=== PATIENT | female | born 1940 | race Caucasian/White ===

== ENCOUNTER 2020-06-25 03:43 | Inpatient (IN) | payer MEDICARE, OTHER ==
[~2020-06-25] VITALS: Ht 147.3 cm; Wt 52.2 kg
[2020-06-25 04:12] LABS: RED BLOOD COUNT 4.16 M/UL (4.00-5.10); WHITE BLOOD COUNT 8.8 K/UL (4.5-11.0)
[2020-06-25 05:43] LABS: BUN/CREATININE RATIO 31 (0-10)
[2020-06-25] MEDS ORDERED: LEVEMIR FL100 UNIT/1 SQ (10:43)
[2020-06-25] MEDS ORDERED: LEVOTHYROXINE75 MCG PO (10:43)
[2020-06-25] MEDS ORDERED: GABAPENTIN300 MG PO (10:44)
[2020-06-25] MEDS ORDERED: ALISKIREN300 MG PO (10:44)
[2020-06-25] MEDS ORDERED: POTASSIUM CHLO20 ME2 PO (10:46)
[2020-06-25] MEDS ORDERED: LASIX40 MG PO (10:47)
[2020-06-25] MEDS ORDERED: GLIPIZIDE-METF1 EAC2 PO ×2 (10:48→10:49)
[2020-06-25] MEDS ORDERED: ATORVASTATIN CA10 MG PO (10:49)
[2020-06-25] MEDS ORDERED: ESCITALOPRAM OX10 MG PO (10:50)
[2020-06-25] MEDS ORDERED: ISOSORBIDE MONO60 MG PO (10:51)
[2020-06-25] MEDS ORDERED: METOPROLOL TART25 MG PO (10:51)
[2020-06-25] MEDS ORDERED: ASPIRIN 325MG325 MG PO (10:52)
[2020-06-25] MEDS ORDERED: VITAMIN D3125 MCG PO (10:52)
[2020-06-25] MEDS ORDERED: CLONIDINE HCL0.1 MG PO (10:53)
[2020-06-25] MEDS ORDERED: PROLIA INJ60 MG/1 ML SC (10:54)
[2020-06-25] MEDS ORDERED: VENTOLIN HFA 66.7 GM INH (10:59)
[2020-06-26 06:13] LABS: HEMOGLOBIN 12.3 gm/dl (12.3-15.3); RED BLOOD COUNT 4.02 M/UL (4.00-5.10); WHITE BLOOD COUNT 6.2 K/UL (4.5-11.0)
[2020-06-26 06:38] LABS: BUN/CREATININE RATIO 17 (0-10)
[2020-06-27 03:56] LABS: HEMOGLOBIN 12.4 gm/dl (12.3-15.3); RED BLOOD COUNT 3.99 M/UL (4.00-5.10); WHITE BLOOD COUNT 7.7 K/UL (4.5-11.0)
--- NOTE | 2020-06-27 04:41 | NUR ---
Lab reported Blood glucose 39. 1 amp of D50 given at this time.
[2020-06-28 04:35] LABS: HEMOGLOBIN 12.3 gm/dl (12.3-15.3); RED BLOOD COUNT 4.02 M/UL (4.00-5.10)
[2020-06-28 04:38] LABS: WHITE BLOOD COUNT 5.6 K/UL (4.5-11.0)
[2020-06-28] MEDS ORDERED: OMNICEF 300 MG300 MG PO (09:47)
[2020-06-28] MEDS ORDERED: FLORASTOR250 MG PO (09:47)
--- NOTE | 2020-06-28 11:47 | NUR ---
06/28/20 1145 report called to [facility] at [phone] Kristen
== END 2020-06-28 12:11 | disposition home or self-care (01) | DRG 291 ==
LOC: ER1 03:43 → CDU 07:10 → MED SURG 4 07:10
PROVIDERS: Family Medicine; ADMIT Internal Medicine
DX: I11.0 Hypertensive heart disease with heart failure (principal); J18.9 Pneumonia, unspecified organism; J96.01 Acute respiratory failure with hypoxia; N17.9 Acute kidney failure, unspecified; K52.1 Toxic gastroenteritis and colitis; I50.33 Acute on chronic diastolic (congestive) heart failure; I27.20 Pulmonary hypertension, unspecified; I34.0 Nonrheumatic mitral (valve) insufficiency; J84.10 Pulmonary fibrosis, unspecified; L89.322 Pressure ulcer of left buttock, stage 2; I25.10 Atherosclerotic heart disease of native coronary artery without angina pectoris; T36.95XA Adverse effect of unspecified systemic antibiotic, initial encounter; F17.200 Nicotine dependence, unspecified, uncomplicated; Z83.3 Family history of diabetes mellitus; Z82.49 Family history of ischemic heart disease and other diseases of the circulatory system; Z90.49 Acquired absence of other specified parts of digestive tract; E10.9 Type 1 diabetes mellitus without complications; Z20.822 Contact with and (suspected) exposure to COVID-19
CPT/HCPCS: ECHO; 36415; 36600; 71045; 80048; 80053; 80202; 82550; 82553; 82803; 82962; 83605; 83874; 83880; 84484; 85025; 85027; 87040; 93005; 93306; 94760; 96365; 96375; 97162; 97166; 99285; J0456; J1650; J1940; J2543; J3370; J7030; J7070; U0002

== ENCOUNTER 2020-09-23 23:00 | Inpatient (IN) | payer MEDICARE, OTHER ==
[~2020-09-23] VITALS: Ht 147.3 cm; Wt 55.8 kg
[~2020-09-23 23:00] MED LIST: ALISKIREN300 MG PO; ASPIRIN 325MG325 MG PO; ATORVASTATIN CA10 MG PO; CLONIDINE HCL0.1 MG PO; ESCITALOPRAM OX10 MG PO; FLORASTOR250 MG PO; GABAPENTIN300 MG PO; GLIPIZIDE-METF1 EAC2 PO; ISOSORBIDE MONO60 MG PO; LASIX40 MG PO; LEVEMIR FL100 UNIT/1 SQ; LEVOTHYROXINE75 MCG PO; METOPROLOL TART25 MG PO; OMNICEF 300 MG300 MG PO; POTASSIUM CHLO20 ME2 PO; PROLIA INJ60 MG/1 ML SC; VENTOLIN HFA 66.7 GM INH; VITAMIN D3125 MCG PO
[2020-09-23 23:17] LABS: HEMOGLOBIN 12.2 gm/dl (12.3-15.3); RED BLOOD COUNT 3.91 M/UL (4.00-5.10); WHITE BLOOD COUNT 7.9 K/UL (4.5-11.0)
[2020-09-23 23:38] LABS: BUN/CREATININE RATIO 30 (0-10)
[2020-09-24] MEDS ORDERED: TEKTURNA HCT 31 EACH PO (11:06)
[2020-09-24] MEDS ORDERED: NITROSTAT 0.40.4 MG SL (11:10)
[2020-09-24] MEDS ORDERED: PROLIA INJ60 MG/1 ML SC (11:11)
[2020-09-25 05:06] LABS: HEMOGLOBIN 11.4 gm/dl (12.3-15.3); RED BLOOD COUNT 3.68 M/UL (4.00-5.10)
[2020-09-25 05:33] LABS: BUN/CREATININE RATIO 22 (0-10)
[2020-09-25 05:42] LABS: WHITE BLOOD COUNT 5.1 K/UL (4.5-11.0)
[2020-09-26 04:47] LABS: RED BLOOD COUNT 3.56 M/UL (4.00-5.10); WHITE BLOOD COUNT 4.4 K/UL (4.5-11.0)
[2020-09-26 05:09] LABS: BUN/CREATININE RATIO 22 (0-10)
[2020-09-26] MEDS ORDERED: LEVEMIR FL100 UNIT/1 SQ (10:49)
[2020-09-26] MEDS ORDERED: METOPROLOL TART25 MG PO (10:49)
[2020-09-26] MEDS ORDERED: OMNICEF 300 MG300 MG PO (10:49)
[2020-09-26] MEDS ORDERED: GLUCOPHAGE 500500 MG PO (10:49)
== END 2020-09-26 15:32 | disposition home or self-care (01) | DRG 637 ==
LOC: ER1 23:00 → CDU 09-24 00:05 → M/S 09-24 14:12
PROVIDERS: Emergency Medicine; ADMIT Internal Medicine
DX: E11.649 Type 2 diabetes mellitus with hypoglycemia without coma (principal); G93.41 Metabolic encephalopathy; E43 Unspecified severe protein-calorie malnutrition; I50.32 Chronic diastolic (congestive) heart failure; J96.11 Chronic respiratory failure with hypoxia; Z20.822 Contact with and (suspected) exposure to COVID-19; N30.00 Acute cystitis without hematuria; Z66 Do not resuscitate; B96.20 Unspecified Escherichia coli [E. coli] as the cause of diseases classified elsewhere; T68.XXXA Hypothermia, initial encounter; E11.40 Type 2 diabetes mellitus with diabetic neuropathy, unspecified; I11.0 Hypertensive heart disease with heart failure; J84.10 Pulmonary fibrosis, unspecified; I27.21 Secondary pulmonary arterial hypertension; L89.322 Pressure ulcer of left buttock, stage 2; L89.312 Pressure ulcer of right buttock, stage 2; E03.9 Hypothyroidism, unspecified; I25.10 Atherosclerotic heart disease of native coronary artery without angina pectoris; F32.9 Major depressive disorder, single episode, unspecified; F41.9 Anxiety disorder, unspecified; R62.7 Adult failure to thrive; E87.6 Hypokalemia; R00.1 Bradycardia, unspecified; Z68.25 Body mass index [BMI] 25.0-25.9, adult; Z79.4 Long term (current) use of insulin
CPT/HCPCS: 36415; 71045; 71250; 80048; 80053; 80307; 81001; 82550; 82553; 82607; 82746; 82962; 83036; 83605; 83735; 83874; 84100; 84439; 84443; 84484; 85025; 85027; 85652; 87040; 87077; 87086; 87186; 93005; 97161; 97166; 97530; 99285; J0696; J1650; U0002